=== PATIENT | male | born 1955 | race Caucasian/White ===

== ENCOUNTER 2017-04-07 19:25 | Emergency (ER) | payer OTHER ==
[~2017-04-07] VITALS: Ht 182.9 cm; Wt 125.0 kg
[~2017-04-07 19:25] MED LIST: ALAVERT10 M1 PO; ASPIRIN 32325 MG/TAB PO; BENADRYL25 M2 PO; BYSTOLIC10 MG PO; BYSTOLIC5 MG PO; CARDI-OMEGA1000 MG PO; CARDIZEM CD 18180 MG PO; CENTRUM SILVER1 CTB PO; CLARITIN 1010 MG/TAB PO; CLARITIN10 MG PO; CRESTOR40 MG PO; CRESTOR5 MG PO; CYMBALTA 30MG30 MG PO; EXCEDRIN BACK &1 TAB PO; EXCEDRIN PO; FISH OIL 1000MG1 CAP PO; FISH OIL1000 MG PO; FLEXERIL 1010 MG/TAB PO; FLOMAX 0.40.4 MG/CAP PO; FLOVENT 110MCG7.9 GM IH; IMDUR 30MG30 MG/TAB PO; IMDUR30 MG PO; LIPITOR 80MG80 MG PO; LIPITOR80 MG PO; LISINOPRIL/HCTZ1 TA1 PO; LISINOPRIL10 MG PO; LYRICA 25MG CAP25 MG PO; LYRICA 75MG CAP75 MG PO; LYRICA75 MG PO; METOPROLOL TART25 MG PO; MICROZIDE12.5 MG PO; MOBIC 7.5MG7.5 MG PO; MSM1000 MG PO; MUCINEX D1 TER PO; NAPROSYN 2250 MG/TAB PO; NAPROSYN500 MG PO; NITROSTAT0.4 MG/TAB SL; NORVASC 5MG5 MG/TAB PO; OMEGA 31000 MG PO; PERCOCET 325 MG1 TA2 PO; PLAVIX 75MG TAB75 MG PO; PREDNISONE20 MG PO; PRINIVIL10 MG PO; PRINIVIL20 MG PO; PROVENTIL0.09 MG/A1 IH; RT ADVAIR 228 DISKUS IH; TOPAMAX 25MG25 M1 PO; TRICOR48 MG PO; TYLENOL ARTHRI650 M1 PO; VENTOLIN0.09 MG IH; VITAMIN B122500 MCG SL; VITAMIN C BUFF500 MG PO; VYTORIN 10 MG-41 TAB PO; XOPENEX HF0.045 MG/A IH; ZANAFLEX 4MG TAB4 MG PO; ZANAFLEX CAPSULE4 MG PO; ZIAC 5/6.25MG T1 TAB PO; ZYRTEC 10MG10 MG PO; [UNRECOGNIZED DRUG - OTHER]
[2017-04-07 19:33] VITALS: BP 149/71; PULSE 62; TEMP 98.4
[2017-04-07] MEDS ORDERED: NORCO 325 MG-51 TAB PO (21:36)
== END 2017-04-07 21:46 | disposition home or self-care (01) ==
LOC: COL.ER 19:25
DX: S60.022A Contusion of left index finger without damage to nail, initial encounter (principal); I25.10 Atherosclerotic heart disease of native coronary artery without angina pectoris; I10 Essential (primary) hypertension; Z79.82 Long term (current) use of aspirin; Z88.1 Allergy status to other antibiotic agents; W22.8XXA Striking against or struck by other objects, initial encounter; Y92.009 Unspecified place in unspecified non-institutional (private) residence as the place of occurrence of the external cause

== ENCOUNTER 2018-03-30 18:57 | Inpatient (IN) | payer BC, OTHER ==
[~2018-03-30] VITALS: Ht 182.9 cm; Wt 129.6 kg
[~2018-03-30 18:57] MED LIST changes: +NORCO 325 MG-51 TAB PO
[2018-03-30 19:54] LABS: BASO # 0.1 (0.0-0.2); BASO % 0.5 % (0.0-2.0); EOS # 0.1 (0.0-0.7); EOS % 0.5 % (0-4.0); GRAN # 8.2 (1.4-6.5); GRAN % 74.7 % (42.2-75.2); HEMATOCRIT 45.9 % (42.0-52.0); HEMOGLOBIN 16.2 g/dl (13.5-18.0); LYMPH # 1.7 (1.2-3.4); LYMPH % 15.4 % (20.0-51.0); MEAN CELL VOLUME 87 fl (80.0-100.0); MEAN CORPUSCULAR HEMOGLOBIN 31 pg (27.0-31.0); MEAN CORPUSCULAR HGB CONC 35 g/dl (33.0-37.0); MEAN PLATELET VOLUME 10.5 fl (7.4-10.4); MONO # 0.9 (0.1-0.6); MONO % 8.5 % (1.7-9.3); PLATELET COUNT 198 K/mm3 (130-400); RED BLOOD COUNT 5.29 M/mm3 (4.20-5.60); REDCELL DISTRIBUTION WIDTH-CV 13.5 % (11.5-14.5)
[2018-03-30 20:07] LABS: ALBUMIN 4.4 gm/dL (3.5-5.0); BILIRUBIN,TOTAL 1.3 mg/dL (0.0-1.0); C-REACTIVE PROTEIN 6.4 mg/dL (0.0-0.9); CALCIUM 9.5 mg/dL (8.4-10.2); CREATININE, serum 2.27 mg/dL (0.66-1.25); POTASSIUM 5.5 mmol/L (3.4-5.0); URIC ACID 9.3 mg/dL (3.5-8.5)
[2018-03-30 22:06] LABS: COLLECTION METHOD CATHETER; PH 5 (5-8); SQUAMOUS EPITHELIAL None Seen /hpf; URINE APPEARANCE Clear; URINE BACTERIA None Seen /hpf; URINE BILIRUBIN Negative (NEGATIVE); URINE BLOOD Negative (NEGATIVE); URINE COLOR Yellow; URINE GLUCOSE Negative (NEGATIVE); URINE KETONE Negative (NEGATIVE); URINE LEUKOCYTE ESTERASE Negative (NEGATIVE); URINE NITRATE Negative (NEGATIVE); URINE PROTEIN(semi-quant) Negative (NEGATIVE); URINE RBC 0-2 /hpf; URINE UROBILINOGEN Negative (NEGATIVE)
--- NOTE | 2018-03-30 23:43 | NUR ---
Patient arrived to room 353. Now resting in bed. Assessment completed, lung sounds clear, abdominal sounds audbile all quadrants, pain in left groin/hip area, given dilaudid in ER. Uses a cane to ambulate. Pulses +3. No edema.
[2018-03-30] MEDS ORDERED: MASON NATURAL2000 IU PO (23:47)
[2018-03-30] MEDS ORDERED: MAG-OX 400400 MG/TAB PO (23:49)
[2018-03-30] MEDS ORDERED: LYRICA 100MG C100 M1 PO (23:50)
[2018-03-30] MEDS ORDERED: FERRO-TIME325 MG PO (23:53)
[2018-03-30] MEDS ORDERED: ALPHA LIPOIC A200 M2 PO (23:56)
[2018-03-30] MEDS ORDERED: FLEXERIL 1010 MG/TAB PO (23:57)
[2018-03-30] MEDS ORDERED: BENADRYL25 M2 PO (23:58)
[2018-03-31] VITALS (11 sets, daily range): BP systolic 86–138; BP diastolic 47–74; PULSE 53–88; TEMP 97.4–99.5
[2018-03-31] MEDS ORDERED: EPA FISH OIL1 SGL PO
[2018-03-31] MEDS ORDERED: BACTRIM DS 8001 TAB PO (00:06)
[2018-03-31 02:22] LABS: CREATININE, serum 2.74 mg/dL (0.66-1.25); POTASSIUM 5.3 mmol/L (3.4-5.0)
[2018-03-31 02:40] LABS: MAGNESIUM 2.3 mg/dL (1.6-2.3); PHOSPHOROUS 4.1 mg/dL (2.5-4.5)
[2018-03-31 02:41] LABS: FRACTIONAL EXCRETION OF NA+ 0.8 %
--- NOTE | 2018-03-31 03:00 | NUR ---
Low BP per [facility], this nurse took a manual blood pressure with 98/74. Plan to recheck in 45 minutes to see if blood pressure is still low.
--- NOTE | 2018-03-31 04:19 | NUR ---
Patient has only had 10 mls output since arriving to floor. Bladder scanned, [address]ls[address] in [address]. Blood pressure dropping 90/54. CARLY Carlos notified, ordered 1 L bolus.
--- NOTE | 2018-03-31 05:19 | NUR ---
Liter bolus done infusing, blood pressure better, SBP 100's. Still no urine output. Bladder scanned again, 30 mls. Lungs sound clear. CARLY Carlos notified. Maintenance fluids continuted at 150 mls/hr, will continue to watch I/O closely and patient has a urology consult already ordered.
--- NOTE | 2018-03-31 07:00 | NUR ---
Report received from KRISTINA Jones. Pt in bed resting, c/o discomfort in joints, will get lyrica and continue to moniotor.
--- NOTE | 2018-03-31 08:10 | NUR ---
Dr. Martin returned call, he has no new orders at this time, feels this is more a nephrology case. Bladder scan revealed 30mls in bladder, duval draining scant amount of clear yellow urine. Bolus administering at this time to L a/c. Pt c/o generalized joint pain, lyrica given per reqeust. BPs low, hr 50's. APRIL Monterroso is aware and orders are being received. Pt appears anxious and uncomfortable, pain is 5/10 to to all extremities. Will continue to monitor.
[2018-03-31 08:34] LABS: HEMATOCRIT 40.2 % (42.0-52.0); MEAN CELL VOLUME 90 fl (80.0-100.0); MEAN CORPUSCULAR HEMOGLOBIN 30 pg (27.0-31.0); MEAN CORPUSCULAR HGB CONC 34 g/dl (33.0-37.0); MEAN PLATELET VOLUME 10.4 fl (7.4-10.4); PLATELET COUNT 171 K/mm3 (130-400); RED BLOOD COUNT 4.45 M/mm3 (4.20-5.60)
[2018-03-31 08:40] LABS: CALCIUM 7.7 mg/dL (8.4-10.2); CREATININE, serum 3.37 mg/dL (0.66-1.25); HEMOGLOBIN 13.5 g/dl (13.5-18.0)
[2018-03-31 08:55] LABS: BAND 9 % (0-10); LYMPHOCYTE 17 % (20.0-51.0); NEUTROPHILS 60 % (42.0-75.2)
[2018-03-31 08:56] LABS: PLATELET ESTIMATE NORMAL (NORMAL)
--- NOTE | 2018-03-31 09:16 | NUR ---
Hospitalist rounding at this time. Some urine now in tubing in catheter. BP is up slightly to 90's/60's.
--- NOTE | 2018-03-31 10:50 | NUR ---
Pushed IV medications to help lower potassium with charge nurse KRISTINA Arita. Pt tolerated well, will continue to monitor.
[2018-03-31 12:42] LABS: URINE PROTEIN:CREAT RATIO 0.93 (0.00-0.14)
--- NOTE | 2018-03-31 16:00 | NUR ---
SW and SW student met with patient to discuss discharge planning. Patient lives alone since his around a year ago. Patients PCP is Dr Gail Morales and he obtains his medications at [facility]. Patient reports his next of kin/contact is his sister Barb who lives down by [place] (#[phone] [id number]#[phone]). Patient doesnt use DME or HH services. SW will continue to follow for discharge needs.
--- NOTE | 2018-03-31 18:28 | NUR ---
Pt has done well over shift. He has had good urine output as of mid morning, urine is yellow and clear draining to duval catheter via DD in bag at side of bed. Has had 2 bms since kayexelate, bed frausto used and pericare provided. Pt continues to c/o pain to L groin, knees, and shoulders, PRN pain meds provided as needed for pain throghout the day and notified physician when c/o pain were not being met. Urology and hospitalist vistied pt this afternoon. Pt resting in bed, ordered supper, call light in reach. Will give bedside shift report to nightshift nurse who will resume care.
--- NOTE | 2018-03-31 19:45 | NUR ---
Patient resting in bed. C/O knee pain, given tylenol and norco. Used bedpan, no results. Catheter in place, patient having output. IV fluids infusing at 150 mls/hr, IV becoming redenned, will switch IV site tonight.
[2018-03-31 20:44] LABS: CALCIUM 8.2 mg/dL (8.4-10.2); CREATININE, serum 2.27 mg/dL (0.66-1.25); POTASSIUM 5.3 mmol/L (3.4-5.0)
[2018-04-01 01:23] VITALS: BP 108/75; PULSE 81; TEMP 99.1
[2018-04-01 03:23] LABS: COMPLEMENT-C3 159 mg/dL (79-152); COMPLEMENT-C4 30 mg/dL (18-55)
--- NOTE | 2018-04-01 03:30 | NUR ---
Patient c/o arm pain in lower arm, has carpal tunnel in left hand. Repositioned arm, given ice, given heat. Patient now resting in bed.
--- NOTE | 2018-04-01 05:20 | NUR ---
Patient did not sleep much last night. C/O pain, varying from knees, to back, to arms. Given NORCO and tylenol. Heat applied, ice applied. Repositioning. Patient will receive his Lyrica this morning, and will be given another NORCO when it is available to him again.
[2018-04-01 05:38] VITALS: BP 128/54; PULSE 85; TEMP 98.9
--- NOTE | 2018-04-01 05:46 | NUR ---
Patient's pain resolved, now resting in bed.
[2018-04-01 06:07] LABS: BASO % 0.3 % (0.0-2.0); EOS # 0.2 (0.0-0.7); EOS % 1.9 % (0-4.0); GRAN # 6.8 (1.4-6.5); HEMATOCRIT 40.7 % (42.0-52.0); HEMOGLOBIN 13.6 g/dl (13.5-18.0); LYMPH # 1.3 (1.2-3.4); LYMPH % 13.5 % (20.0-51.0); MEAN CELL VOLUME 90 fl (80.0-100.0); MEAN CORPUSCULAR HEMOGLOBIN 30 pg (27.0-31.0); MEAN CORPUSCULAR HGB CONC 33 g/dl (33.0-37.0); MEAN PLATELET VOLUME 10.4 fl (7.4-10.4); MONO # 1.5 (0.1-0.6); PLATELET COUNT 158 K/mm3 (130-400); RED BLOOD COUNT 4.53 M/mm3 (4.20-5.60); REDCELL DISTRIBUTION WIDTH-CV 13.8 % (11.5-14.5)
[2018-04-01 06:22] LABS: CALCIUM 8.1 mg/dL (8.4-10.2); CREATININE, serum 1.68 mg/dL (0.66-1.25); MAGNESIUM 2.3 mg/dL (1.6-2.3); POTASSIUM 4.8 mmol/L (3.4-5.0)
[2018-04-01 07:39] VITALS: BP 126/67; PULSE 84; TEMP 98.5
--- NOTE | 2018-04-01 10:00 | NUR ---
Pt alert and oriented and catheter patent. Pt's pain managed with PRN meds. Pt has call light in reach. Pt bedbound d/t pain in left groin and knees and abdomen. Pt very particular on bed roll and requires 2 assist. Pt am assessment completed.
[2018-04-01 11:31] VITALS: BP 108/56; PULSE 83; TEMP 98.6
[2018-04-01 16:09] VITALS: BP 132/81; PULSE 88; TEMP 98.4
--- NOTE | 2018-04-01 18:00 | NUR ---
Pt remains alert and oriented. Pt had 500cc output noted and has been drinking water through the day. IV fluids dc'd. Pt rates pain 4/10. Pt has call light in reach.
[2018-04-01 19:07] VITALS: BP 141/70; PULSE 96; TEMP 99.1
--- NOTE | 2018-04-01 19:52 | NUR ---
Pt report to Cipriano ACEVEDO. Pt requesting pain med at shift change and c/o tip of penis pain. Penis cleansed and output shown to pt. Cipriano ACEVEDO will get PRN med for pain mngt. Pt has call light in reach.
--- NOTE | 2018-04-02 03:13 | NUR ---
On initial visit with Pt he had a C/O being in a lot of pain due to the duval insertion, there was bloody residue on the tubing and catheter care was provided by the off going nurse. This nurse attended to Pt first and administered PRN pain medication and muscle relaxant, when reassessing Pt after administration it was noted that Pt still had a high level of pain and was becoming aggitated and wanted his Duval removed, explained to Pt the reasons for the Duval being needed and that I would contact the provider for further guidance for pain relief. Contacted the provider and received an order for B&O suppositories one now and then PRN, this nurse went to discuss with Pt the providers resolution. This nurse found Pt sitting at the side of the bed with the duval removed and on the floor insisting that we release him to leave, explained to Pt that I would talk to the Wire Repairer and that it was his right to leave at any time but that I would need to complete AMA paperwork for him to leave. Contacted Wire Repairer who spoke with Pt, Pt was insistent on leaving. Pt was told that before we could let him leave he would have to have somebody here to drive him home, when his ride home arrived this nurse helped him to get dressed and had Pt read and complete the AMA paperwork, with the assistance of the aides and other nurses we tried to get him to stand and he was unable to support his weight, he was then told that if he was unable to stand and walk that it was in his best interest to stay, Pt at this point aggreed and got back into bed, at this point telemetry was placed back on the Pt, I.V. access reestablished, and overdue medications administered. Duval catheterization was not reestablished at this time pending review by provider whom will be contacted in the morning.
[2018-04-02 04:45] VITALS: BP 131/70; PULSE 116; TEMP 97.9
[2018-04-02 07:49] VITALS: BP 138/63; PULSE 108; TEMP 98.4
[2018-04-02 08:46] LABS: BASO % 0.3 % (0.0-2.0); EOS % 0.1 % (0-4.0); GRAN # 8.5 (1.4-6.5); GRAN % 78.5 % (42.2-75.2); HEMATOCRIT 40.8 % (42.0-52.0); HEMOGLOBIN 14.1 g/dl (13.5-18.0); LYMPH # 0.9 (1.2-3.4); MEAN CELL VOLUME 88 fl (80.0-100.0); MEAN CORPUSCULAR HEMOGLOBIN 31 pg (27.0-31.0); MEAN CORPUSCULAR HGB CONC 35 g/dl (33.0-37.0); MEAN PLATELET VOLUME 10.3 fl (7.4-10.4); MONO # 1.4 (0.1-0.6); MONO % 12.7 % (1.7-9.3); PLATELET COUNT 218 K/mm3 (130-400); RED BLOOD COUNT 4.63 M/mm3 (4.20-5.60); REDCELL DISTRIBUTION WIDTH-CV 13.8 % (11.5-14.5)
[2018-04-02 08:51] LABS: CREATININE, serum 1.33 mg/dL (0.66-1.25); MAGNESIUM 1.9 mg/dL (1.6-2.3); POTASSIUM 4.6 mmol/L (3.4-5.0)
--- NOTE | 2018-04-02 10:39 | NUR ---
BRIEN and brien student attended clinical rounding. Patient is still unable to walk due to pain in his legs. has ordered more tests today. BRIEN will continue to follow PT recommedations.
[2018-04-02 15:48] VITALS: BP 118/66; PULSE 102; TEMP 97.9
--- NOTE | 2018-04-02 17:00 | NUR ---
Summary note: Report received from KRISTINA Perez at 1300. Pt resting in bed; complained of pain and medications given as documented. Killian irrigated and multiple clots removed. Urinary output of 500 mL immediately after. Pt denies further needs.
--- NOTE | 2018-04-02 17:59 | NUR ---
Report given to KRISTINA Maier on surgical. Pt transferred with all his belongings.
--- NOTE | 2018-04-02 18:20 | NUR ---
PATIENT ARRIVED TO ROOM 343 VIA BED FROM MEDICAL. PATIENT SETTELED INTO ROOM. PATIENT DENIES ANY NEEDS AT THIS TIME.
--- NOTE | 2018-04-02 18:53 | NUR ---
REPORT GIVEN TO LASHELL TOMAS.
[2018-04-02 19:55] VITALS: BP 133/75; PULSE 101; TEMP 98
--- NOTE | 2018-04-02 20:00 | NUR ---
Patient resting in bed at this time. Patient rouses easily and is alert and oriented while awake, answers questions appropriately. Killian catheter in place draining dark red urine, small clots evident. Patient denies pain at this time, call light within reach.
[2018-04-02 23:39] VITALS: BP 112/81; PULSE 103; TEMP 98.6
--- NOTE | 2018-04-03 01:09 | NUR ---
Patient called to report that he was feeling pressure and discomfort in his bladder. After draining the tubing patient stated that he still felt pressure. Irrigated Duval with 60ml of sterile water and returned multiple small to medium clots. Urine was free flowing once drainage bag was replaced to duval, urine is still dark red in appearance and has multiple small clots in tubing and bag. Patient reported feeling relief after irrigation. Denies further needs at this time, call light within reach.
[2018-04-03 03:58] VITALS: BP 155/63; PULSE 108; TEMP 98.2
[2018-04-03 06:50] LABS: BASO % 0.1 % (0.0-2.0); GRAN # 6.1 (1.4-6.5); GRAN % 86.3 % (42.2-75.2); HEMATOCRIT 43.2 % (42.0-52.0); HEMOGLOBIN 14.9 g/dl (13.5-18.0); LYMPH # 0.5 (1.2-3.4); LYMPH % 7.5 % (20.0-51.0); MEAN CELL VOLUME 87 fl (80.0-100.0); MEAN CORPUSCULAR HEMOGLOBIN 30 pg (27.0-31.0); MEAN CORPUSCULAR HGB CONC 35 g/dl (33.0-37.0); MEAN PLATELET VOLUME 10.3 fl (7.4-10.4); MONO # 0.4 (0.1-0.6); MONO % 5.7 % (1.7-9.3); PLATELET COUNT 249 K/mm3 (130-400); RED BLOOD COUNT 4.95 M/mm3 (4.20-5.60); REDCELL DISTRIBUTION WIDTH-CV 13.8 % (11.5-14.5)
[2018-04-03 07:02] LABS: CALCIUM 9.6 mg/dL (8.4-10.2); CREATININE, serum 1.11 mg/dL (0.66-1.25); POTASSIUM 5.4 mmol/L (3.4-5.0)
[2018-04-03 07:48] VITALS: BP 158/66; PULSE 118; TEMP 97.9
--- NOTE | 2018-04-03 10:00 | NUR ---
Patient alert and oriented, answers questions appropriately. See assessment. Killian catheter patent and draining dark red urine, no clots noted, catheter irrigated. Minimal bloody drainage noted around catheter. No c/o at this time.
--- NOTE | 2018-04-03 10:44 | NUR ---
SW met with patient. Patient reports that he is ready to leave. Patient is reported as having limited functioning in lower extrementies. SW provided education on safety at home. SW educated recommendation for SNF. Patient reports that he has no objections to SNF. Patient choice form signed for [facility] and [facility]. Contacted [facility], they are full. [facility] awaiting screening. Faxed referrals. Patient reports that he is agreeable to SNF. Patient reports that he does not have a DPOA and declined setting one up at this time. SW will continue to follow care to assist in DC.
[2018-04-03 11:52] VITALS: BP 112/72; PULSE 105; TEMP 98.2
[2018-04-03 15:14] VITALS: BP 133/74; PULSE 111; TEMP 98.1
[2018-04-03 19:42] VITALS: BP 127/62; PULSE 95; TEMP 98
--- NOTE | 2018-04-03 20:00 | NUR ---
Patient resting in bed watching television at this time. Patient is alert and oriented, answers questions appropriately. Killian in place and is draining bloody urine. Urine has lightened but blood is still apparent in urine, small blood clots visible in tubing and bag. Patient denies pain or needs at this time, call light within reach.
[2018-04-04 03:12] VITALS: BP 125/63; PULSE 72; TEMP 98.2
--- NOTE | 2018-04-04 05:17 | NUR ---
Patient has rested well overnight. Patient up with x1 assist to bedside commode. Patient was continent of bowel and was a minimal assist back to bed. Killian still in place, urine intermittently bloody and aysha with small clots. Patient denies further needs at this time, call light within reach.
[2018-04-04 06:42] LABS: BASO % 0.5 % (0.0-2.0); EOS # 0.1 (0.0-0.7); EOS % 0.7 % (0-4.0); GRAN # 5.5 (1.4-6.5); GRAN % 66.3 % (42.2-75.2); HEMATOCRIT 38.8 % (42.0-52.0); HEMOGLOBIN 13.5 g/dl (13.5-18.0); LYMPH # 1.4 (1.2-3.4); LYMPH % 17.3 % (20.0-51.0); MEAN CELL VOLUME 87 fl (80.0-100.0); MEAN CORPUSCULAR HEMOGLOBIN 30 pg (27.0-31.0); MEAN CORPUSCULAR HGB CONC 35 g/dl (33.0-37.0); MEAN PLATELET VOLUME 10.6 fl (7.4-10.4); MONO # 1.2 (0.1-0.6); MONO % 14.8 % (1.7-9.3); PLATELET COUNT 244 K/mm3 (130-400); RED BLOOD COUNT 4.44 M/mm3 (4.20-5.60)
[2018-04-04 06:51] LABS: CALCIUM 8.8 mg/dL (8.4-10.2); CREATININE, serum 1.21 mg/dL (0.66-1.25); POTASSIUM 4.2 mmol/L (3.4-5.0)
--- NOTE | 2018-04-04 09:00 | NUR ---
Patient has stated several times this am that his catheter is not draining and he is having pain. Irrigated the catheter, did not get any clots but did get the catheter to flow. He had some sediment and dark aysha urine returned. No other changes at this time. Call light within reach.
[2018-04-04 09:02] VITALS: BP 123/65; PULSE 67; TEMP 97.8
[2018-04-04 12:43] VITALS: BP 117/62; PULSE 60; TEMP 97.7
--- NOTE | 2018-04-04 13:30 | NUR ---
Medicated with prn med for c/o bladder pain. Catheter draining dark aysha urine. Fluids encouraged.
[2018-04-04 16:00] VITALS: BP 129/56; BP 130/55; PULSE 66; PULSE 91; TEMP 97.9; TEMP 98
--- NOTE | 2018-04-04 18:00 | NUR ---
Sitting at side of bed without complaint.
--- NOTE | 2018-04-04 19:15 | NUR ---
Report received from Anika ACEVEDO. Pt helped back into bed from side of bed. Pt c/o pain 03/18 at rest, but requesting pain medication for bladder spasm. Catheter to dependent drainage-dark aysha urine noted. Lungs clear. Respirations unlabored. BS positive. Will continue to monitor.
[2018-04-04 19:45] VITALS: BP 128/66; PULSE 63; TEMP 98
[2018-04-04 23:35] VITALS: BP 130/72; PULSE 62; TEMP 97.7
--- NOTE | 2018-04-05 01:20 | NUR ---
Pt called reporting his catheter was "not working". Catether irrigated with 10 cc Sterile water with immediate return of dark aysha urine. Pt reports relief. Will continue to monitor.
[2018-04-05 03:50] VITALS: BP 132/63; PULSE 63; TEMP 97.8
--- NOTE | 2018-04-05 03:59 | NUR ---
Pt called at 0330 stating that his catheter wasn't "working" again. Catheter irrigated with 20 mL Sterile water. Unable to draw anything back, but catheter does drain when syring is removed. 100 mL of output is noted. Pt stated that he still felt pressure, so Erasmo ACEVEDO irrigated catheter multiple times with no return. 10 mL water removed from catheter balloon and catheter removed. New catheter inserted by Erasmo ACEVEDO via sterile technique. Small amount of blood tinged urine drained into the catheter tube upon insertion. Erasmo ACEVEDO attempted to irrigate catheter again with no immediate return, but catheter is draining. Bladder scan results showed only 20 mL of urine in bladder. Will continue to monitor urine drainage.
[2018-04-05 06:46] LABS: BASO # 0.1 (0.0-0.2); BASO % 0.7 % (0.0-2.0); EOS # 0.3 (0.0-0.7); EOS % 4.5 % (0-4.0); GRAN # 3.8 (1.4-6.5); GRAN % 53.6 % (42.2-75.2); HEMATOCRIT 37.7 % (42.0-52.0); HEMOGLOBIN 12.8 g/dl (13.5-18.0); LYMPH % 28.2 % (20.0-51.0); MEAN CELL VOLUME 89 fl (80.0-100.0); MEAN CORPUSCULAR HEMOGLOBIN 30 pg (27.0-31.0); MEAN CORPUSCULAR HGB CONC 34 g/dl (33.0-37.0); MEAN PLATELET VOLUME 9.7 fl (7.4-10.4); MONO # 0.9 (0.1-0.6); MONO % 12.6 % (1.7-9.3); PLATELET COUNT 240 K/mm3 (130-400); RED BLOOD COUNT 4.25 M/mm3 (4.20-5.60)
[2018-04-05 06:59] LABS: CALCIUM 8.7 mg/dL (8.4-10.2); CREATININE, serum 1.13 mg/dL (0.66-1.25); POTASSIUM 3.6 mmol/L (3.4-5.0)
--- NOTE | 2018-04-05 07:03 | NUR ---
Report given to Estela ACEVEDO. Pt resting. UO has been adequate since catheter replacement. Pt reports having some relief.
[2018-04-05 07:42] VITALS: BP 124/74; PULSE 73; TEMP 98.2
--- NOTE | 2018-04-05 08:36 | NUR ---
Patient alert and oriented, answers questions appropriately. See assessment. Killian catheter patent and draining dark aysha urine, few clots noted. Full strenght noted to BLE, pulses palpable. No c/o at this time.
--- NOTE | 2018-04-05 12:09 | NUR ---
Raul from [employer] met with patient and looked at options for patient for financial assistance and insurance.
[2018-04-05 12:58] VITALS: BP 124/68; PULSE 57; TEMP 98.1
[2018-04-05 15:51] VITALS: BP 121/70; PULSE 61; TEMP 98
--- NOTE | 2018-04-05 19:30 | NUR ---
Shift assessment complete. Pt resting in bed, awake, a&o, cooperative c cares. Pt reports increased pain since moving back into bed; pt requests ocycodone c HS meds. Denies any other c/o. INT patent. Pt denies further needs at this time. Call light in reach, will monitor.
[2018-04-05 20:55] VITALS: BP 144/70; PULSE 58; TEMP 98.2
[2018-04-06] VITALS (8 sets, daily range): BP systolic 120–135; BP diastolic 55–75; PULSE 52–85; TEMP 97.7–98.7
[2018-04-06 06:02] LABS: CALCIUM 8.8 mg/dL (8.4-10.2); CREATININE, serum 1.09 mg/dL (0.66-1.25); POTASSIUM 3.8 mmol/L (3.4-5.0)
[2018-04-06 06:52] LABS: BASO # 0.1 (0.0-0.2); BASO % 0.8 % (0.0-2.0); EOS # 0.3 (0.0-0.7); EOS % 4.4 % (0-4.0); GRAN # 4.3 (1.4-6.5); GRAN % 59.5 % (42.2-75.2); HEMATOCRIT 38.9 % (42.0-52.0); HEMOGLOBIN 13.2 g/dl (13.5-18.0); LYMPH # 1.6 (1.2-3.4); LYMPH % 22.1 % (20.0-51.0); MEAN CELL VOLUME 89 fl (80.0-100.0); MEAN CORPUSCULAR HEMOGLOBIN 30 pg (27.0-31.0); MEAN CORPUSCULAR HGB CONC 34 g/dl (33.0-37.0); MEAN PLATELET VOLUME 10.1 fl (7.4-10.4); MONO # 0.9 (0.1-0.6); MONO % 12.8 % (1.7-9.3); PLATELET COUNT 265 K/mm3 (130-400); RED BLOOD COUNT 4.36 M/mm3 (4.20-5.60); REDCELL DISTRIBUTION WIDTH-CV 13.9 % (11.5-14.5)
--- NOTE | 2018-04-06 09:30 | NUR ---
Patient alert and oriented, answers questions appropriately. See assessment. Killian catheter patent and draining dark aysha urine, no clots noted. Full strenght noted to BLE, no numbness or tingling. No other c/o at this time.
--- NOTE | 2018-04-06 11:15 | NUR ---
DONAVAN and SW student met with patient to discuss where he would like to obtain a walker from. He reports he has a friend he can ask to borrow one from. SW found the number of the friend and the [employer] and provided it. Will follow up after occupational therapy.
[2018-04-06] MEDS ORDERED: LEVSIN0.125 M1 SL (11:18)
--- NOTE | 2018-04-06 13:00 | NUR ---
Killian catheter care and bag changed reviewed with patient with return demonstration.
[2018-04-06] MEDS ORDERED: PREDNISONE20 MG PO (14:22)
--- NOTE | 2018-04-07 01:23 | NUR ---
THE PT WAS BEDRESTING SHIFT REPORT FROM ANCELMO WAS RECIEVED. THE PT CALLED A SHORT TIME LATER TO REPORT THAT HE HAD SPASMS AND AN ELIMINATION AROUND HIS CATHETER. PT HAD 3" LONG BLOOD CLOT, STRINGY IN HIS DEPENDS, DEPENDS CHANGED. THE CLOT WAS SURROUNDED BY BLOOD TINGED URINE. 20CC IRRIGATION WITH NS, AND CLEARER RETURNS, GIVEN AZO, HAD A SMALLER 1" VERY THIN STRINGY CLOT, HAD PIPPA IN TO SPEAK WITH THE PT HE SEEMED NERVOUS AT HAVING THE CATHETER AND SPASMS, VERBALIZED THAT SOMEONE HAD TOLD HIM OF A 3 PORT CATHETER, ASKING IF HE SHOULD HAVE IT INSTEAD OF THE 2 PORT ONE THAT HE CURRENTLY HAS. SHE EXPLAINED THE DIFFERENCE AND THAT THE ONE HE HAS IS MEETING HIS CURRENT NEEDS. CALL TO HOSPITALIST REGUARDING HIS MAREPHIN ORDER. HOLD AND CLARIFY WITH UROLOGY IN THE AM. PT GOT A INGRID ABOUT 2315 WITH GOOD EFFECT. APPEARS TO NAP.
--- NOTE | 2018-04-07 02:03 | NUR ---
TRUNG BROCK REPORTED THAT HTE PT HAD ANOTHER SMALL PINK TINGED LEAK AROUND HIS CATHETER. SHE ASSISTED HIM WITH DOFFING THE OLD DEPENDS AND DONNED ANOTHER. THIS NURSE DISCUSSED THIS WITH PIPPA LEVINE RN, NORMAL FOR BLADDER SPASMS.
--- NOTE | 2018-04-07 02:42 | NUR ---
BEDRESTING WITH EYES CLOSED, RESP EVEN
--- NOTE | 2018-04-07 06:43 | NUR ---
C\O PAIN, GAVE INGRID JUST NOW, UP TO THE BR FOR A MED TO LARGE SF BR BM, MEATUS LEAKED SOME, HYGIENE ASSISTED. PT IS HOPEFUL TO HAVE HIS CORBIN OUT SOON.
--- NOTE | 2018-04-07 07:30 | NUR ---
PATIENT CALLED OUT STATING THAT HE'S LEAKING AROUND HIS CATHETER AGAIN. MODERATE AMOUNT OF BLOOD-TINGED URINE WITHOUT CLOTS PRESENT IN BRIEF. MODE CARE AND CATHETER CARE PROVIDED. PATIENT GIVEN PRN DOSE OF LEVSIN. CORBIN CATHETER TO DEPENDENT DRAINAGE WITH SMALL AMOUNTS OF CLEAR ORANGE COLORED URINE PRESENT IN CORBIN BAG.
--- NOTE | 2018-04-07 08:00 | NUR ---
PATIENT IS DROWSY AND RESTING IN BED. PATIENT AROUSES EASILY TO NAME. PATIENT IS A&O. VSS. BOWEL SOUNDS ACTIVE ALL FOUR QUADRANTS. PATIENT TOLERATING FOOD & LIQUIDS WITHOUT ANY COMPLAINTS OF N/V. POSITIVE PEDAL PULSES EQUAL BILATERALLY. NON-PITTING EDEMA TO BLE NOTED. ECCHYMOSIS TO ABDOMEN RLQ NOTED. CORBIN CATHETER TO DEPENDENT DRAINAGE WITH SMALL AMOUNTS OF CLEAR ORANGE COLORED URINE PRESENT IN CORBIN BAG. PATIENT GIVEN PRN DOSE OF LEVSIN FOR COMPLAINTS OF BLADDER SPASMS. CALL LIGHT WITHIN REACH. BREAKFAST TRAY ORDERED. NO OTHER NEEDS AT THIS TIME.
[2018-04-07 08:14] LABS: BASO % 0.5 % (0.0-2.0); EOS # 0.4 (0.0-0.7); EOS % 4.4 % (0-4.0); GRAN # 5.4 (1.4-6.5); HEMATOCRIT 40.7 % (42.0-52.0); HEMOGLOBIN 13.7 g/dl (13.5-18.0); LYMPH # 1.5 (1.2-3.4); LYMPH % 17.9 % (20.0-51.0); MEAN CELL VOLUME 90 fl (80.0-100.0); MEAN CORPUSCULAR HEMOGLOBIN 30 pg (27.0-31.0); MEAN CORPUSCULAR HGB CONC 34 g/dl (33.0-37.0); MEAN PLATELET VOLUME 9.9 fl (7.4-10.4); MONO # 0.9 (0.1-0.6); MONO % 10.6 % (1.7-9.3); PLATELET COUNT 313 K/mm3 (130-400); RED BLOOD COUNT 4.55 M/mm3 (4.20-5.60); REDCELL DISTRIBUTION WIDTH-CV 13.8 % (11.5-14.5)
[2018-04-07 08:45] LABS: CALCIUM 9.2 mg/dL (8.4-10.2); CREATININE, serum 1.13 mg/dL (0.66-1.25); POTASSIUM 4.3 mmol/L (3.4-5.0)
[2018-04-07 08:47] VITALS: BP 107/75; PULSE 55; TEMP 98
--- NOTE | 2018-04-07 10:00 | NUR ---
PATIENT HAD A BLADDER SPASM WHILE WALKING WITH PHYSICAL THERAPY. LARGE INCONTINENT VOID AROUND CORBIN CATHETER. URINE BLOOD-TINGED, NO CLOTS PRESENT.
--- NOTE | 2018-04-07 10:11 | NUR ---
SW and SW student met with patient during clinical rounding. Patient did not discharge last night but will be dc home today with support from friends and outpatient therapy.
[2018-04-07] MEDS ORDERED: FLEXERIL5 MG PO (11:39)
[2018-04-07] MEDS ORDERED: ROXICODONE 55 MG/TAB PO (11:48)
[2018-04-07 12:40] VITALS: BP 105/90; PULSE 54; TEMP 97.3
--- NOTE | 2018-04-07 15:30 | NUR ---
DISCHARGE INSTRUCTIONS REVIEWED WITH PATIENT. LEG BAG TEACHING COMPLETE. ALL QUESTIONS ANSWERED. PATIENT PERSONAL BELONGINGS GATHERED. PATIENT TAKEN TO PERSONAL VEHICLE VIA WHEELCHAIR BY SURGICAL STAFF. PATIENT DISCHARGED.
[2018-04-07 15:48] VITALS: BP 122/65; PULSE 65; TEMP 99.1
== END 2018-04-07 15:30 | disposition home or self-care (01) | DRG 683 ==
LOC: COL.ER 18:57 → MEDICAL 22:41 → SURG 22:41 → MEDICAL 23:59 → SURG 04-02 17:59
PROVIDERS: Emergency Medicine; Internal Medicine; Nurse Practitioner Family; Physician Assistant; ADMIT Hospitalist
DX: N17.9 Acute kidney failure, unspecified (principal); N41.0 Acute prostatitis; N40.1 Benign prostatic hyperplasia with lower urinary tract symptoms; R33.8 Other retention of urine; E87.5 Hyperkalemia; E86.0 Dehydration; M25.562 Pain in left knee; M25.561 Pain in right knee; I25.10 Atherosclerotic heart disease of native coronary artery without angina pectoris; I10 Essential (primary) hypertension; E78.5 Hyperlipidemia, unspecified; J45.909 Unspecified asthma, uncomplicated; N18.3 Chronic kidney disease, stage 3 (moderate); R31.9 Hematuria, unspecified
CPT/HCPCS: 99222-AI; 99231-AI; 99232-AI; 99233-AI; 99239; G0378; J0610; J0696; J1100; J1170; J1644; J1815; J1940; J2405; J3010; J7030; J7512

== ENCOUNTER 2018-05-14 05:03 | Day surgery (SDC) | payer BC ==
[~2018-05-14] VITALS: Ht 182.9 cm; Wt 133.2 kg
[2018-05-14] VITALS (12 sets, daily range): BP systolic 97–132; BP diastolic 51–76; PULSE 62–89; TEMP 97.6–98.4
[~2018-05-14 05:03] MED LIST changes: +ALPHA LIPOIC A200 M2 PO; +BACTRIM DS 8001 TAB PO; +EPA FISH OIL1 SGL PO; +FERRO-TIME325 MG PO; +FLEXERIL5 MG PO; +LEVSIN0.125 M1 SL; +LYRICA 100MG C100 M1 PO; +MAG-OX 400400 MG/TAB PO; +MASON NATURAL2000 IU PO; +ROXICODONE 55 MG/TAB PO
--- NOTE | 2018-05-14 06:39 | NUR ---
TO RM AT 0529- CALL LIGHT IN REACH NO ONE WITH PATIENT
--- NOTE | 2018-05-14 12:15 | NUR ---
MET PT UPON ARRIVAL TO SURGICAL FLOOR. SETUP HOME CPAP UNIT AT BEDSIDE. PT AWAKE AN ANSWERING QUESTIONS WITH NURSING STAFF. HOME UNIT LEFT AT BEDSIDE, STERILE WATER AND HUMIDIFICATION ATTACHED. NO DISTRESS NOTED. CURRENTLY ON 4L NC.
--- NOTE | 2018-05-14 12:15 | NUR ---
Patient alert and oriented, answers questions appropriately. See assessment. Killian catheter patent and draining clear yellow urine. CBI infusing at slow rate. No c/o pain or discomfort at this time.
--- NOTE | 2018-05-14 18:12 | NUR ---
Discharge instructions given both verbal and handwritten. Discussed follow up, home medications, s/s to notify provider of. 20g IV-right hand DCd. Cath intact. No s/s of infection noted. Escorted off [place]stein via wheelchair by surgical staff.
--- NOTE | 2018-05-14 22:37 | NUR ---
Completed assessment and medication administration; PT tolerated all cares well; PT denied acute pain or discomfort at urinary/groin sites; PT reports minor headache and requested available PRN Tylenol 650mg; PT A&Ox3, BS active x4, duval in place draining red clear urine; IV 1/2 NS 20mEq initated as ordered to right hand IV at 100ml/hr; No further complaints or concerns at time of exit; PT in comfortable position in bed with call light in reach; Will continue to monitor. CDA
[2018-05-15] VITALS (7 sets, daily range): BP systolic 94–124; BP diastolic 48–65; PULSE 55–66; TEMP 97.3–97.8
--- NOTE | 2018-05-15 03:22 | NUR ---
PT resting well in bed with duval draining unobstructed intermittent red tinged clear urine; irrigation clamped; 1/2 NS 20mEq running at 100ml/hr to right hand; No further visible concern assessed at this time; PT in comfortable position in bed with call light in reach; Will continue to monitor. CDA
--- NOTE | 2018-05-15 07:04 | NUR ---
Report given to LASHELL Adkins. CDA
--- NOTE | 2018-05-15 08:57 | NUR ---
Patient resting in bed at this time. Patient rouses easily, and is alert and oriented, answers questions appropriately when awake. Killian remains in place, urine is dark pink at this time; CBI is clamped. IVF continue, will INT per order after breakfast if patient continues to have no nausea. Patient continues to deny pain or further needs at this time, call light within reach.
--- NOTE | 2018-05-15 10:24 | NUR ---
Plan: Return home in [facility]. Assess: Patient reports living independently in [place]. Patient shares the his PCP is Dr. Morales. Patient reports that has a ride home of a friend. Patient indicated that we have all the information on file and did not give a verbal reports of his emr contacts or OA statues. Patient reports thta he has used home health in the past but does not want to use it. Patient reports RX obtained from [facility] locally, Denies the use of any DME. Patient reports that he has a walker but does not use it. Action: Patient reports that the door outside of his room is loud and interrupts his sleep. SW set expectations on not knowing how to mitigate that but will let his nurse know. No additional concerns at this time.
--- NOTE | 2018-05-15 11:00 | NUR ---
Patient was indisposed.
--- NOTE | 2018-05-15 19:14 | NUR ---
Patient has rested comfortably today. CBI has remained clamped, urine has alternated between clear yellow and bloody, no clots or bladder spasms. Patient has not needed PRN pain medication and has denied nausea. IV to INT per order. Patient denies needs at this time, call light within reach.
--- NOTE | 2018-05-15 23:02 | NUR ---
Completed assessment and medication administration; PT tolerated all cares well; PT denied further needs at this time; IV fluids D/C to RH; CBI clamped; Will start prime and pull with 6 cup collection this evening; duval inplace with pink clear urine draining to dependent collection bag; no verbal report of pain, discomfort, or bladder spasms; PT A&Ox3, BS active x4, LCTAB in upper lobes and diminished to bilateral lower lobes; No further needs at time of exit; Call light placed within reach; Will continue to monitor. CDA
--- NOTE | 2018-05-16 00:10 | NUR ---
PT initiated and educated on the prime and pull procedure; 26cc removed from double indwelling duval balloon at time of extraction; full catheter removed without complaints; 200cc bolus of fluid tolerated well; 6 collection cups placed within personal restroom for voiding collection; PT able to rest in bed at completion of procedure; Will continue to monitor. CDA
[2018-05-16 04:46] VITALS: BP 93/58; PULSE 54; TEMP 97.5
--- NOTE | 2018-05-16 06:02 | NUR ---
PT resting well in supine +15 HOB; PT denies acute concerns at time of rounds; PT tolerated all cares and ABX throughout shift; PICC lines flushing and drawing well; Labs pending; PT continues to AMB well for toileting with use of personal cane; No further needs or concerns at this time; Will continue to monitor. CDA
--- NOTE | 2018-05-16 06:14 | NUR ---
PT resting well in supine position +15 degree HOB; PT denies acute pain or discomfort; PT has completed 2/6 urinary cup collections post duval removal and CBI D/C; PT utilizing urinal during evening with success; No further needs or acute changes assessed during rounds; call light within reach; will continue to monitor. CDA
--- NOTE | 2018-05-16 06:57 | NUR ---
Report given to LASHELL Adkins. CDA
[2018-05-16 08:19] VITALS: BP 104/57; PULSE 56; TEMP 97.7
--- NOTE | 2018-05-16 09:00 | NUR ---
Patient resting in bed watching television at this time. Patient is alert and oriented, answers questions appropriately. Killian was removed this morning and six bottle in progress, urine is still blod tinged but clear. Patient denies pain or nausea at this time, call light within reach.
[2018-05-16 13:19] VITALS: BP 120/64; PULSE 54; TEMP 97.5
--- NOTE | 2018-05-16 15:51 | NUR ---
Discharge teaching completed on discharge orders, follow up appointments and signs and symptoms to watch for. Patient verbalizes undertstanding and denies questions or concerns. INT removed, catheter removed intact, hemostasis achieved. Patient gathered belongings and was escorted out by surgical staff.
== END 2018-05-16 15:50 | disposition home or self-care (01) ==
LOC: SDCO 05:03 → SURG 11:10 → SDCO 05-16 15:50
DX: N40.1 Benign prostatic hyperplasia with lower urinary tract symptoms (principal); R33.8 Other retention of urine; N21.0 Calculus in bladder; J45.909 Unspecified asthma, uncomplicated; E78.5 Hyperlipidemia, unspecified; Z90.49 Acquired absence of other specified parts of digestive tract; Z95.5 Presence of coronary angioplasty implant and graft; Z79.82 Long term (current) use of aspirin; Z79.899 Other long term (current) drug therapy; Z79.02 Long term (current) use of antithrombotics/antiplatelets; I10 Essential (primary) hypertension; I25.10 Atherosclerotic heart disease of native coronary artery without angina pectoris; R20.2 Paresthesia of skin; Z68.39 Body mass index [BMI] 39.0-39.9, adult; E66.9 Obesity, unspecified; Z68.36 Body mass index [BMI] 36.0-36.9, adult; G89.29 Other chronic pain; Z80.3 Family history of malignant neoplasm of breast; Z83.3 Family history of diabetes mellitus
CPT/HCPCS: OP; J0690; J1100; J2405; J2550; J2704; J3010; J3480; J7120

== ENCOUNTER 2018-05-30 01:57 | Observation (INO) | payer BC ==
[~2018-05-30] VITALS: Ht 180.3 cm; Wt 131.8 kg
[2018-05-30 03:34] LABS: COLLECTION METHOD CLEAN CATCH
[2018-05-30 03:55] LABS: AMORPHOUS CRYSTAL Present /uL; PH 6 (5-8); SQUAMOUS EPITHELIAL None Seen /hpf; URINE APPEARANCE Clear; URINE BACTERIA None Seen /hpf; URINE BILIRUBIN Negative (NEGATIVE); URINE BLOOD 2+ (NEGATIVE); URINE CALCIUM OXALATE CRYSTAL Present /hpf; URINE COLOR Red; URINE GLUCOSE 2+ (NEGATIVE); URINE KETONE Negative (NEGATIVE); URINE LEUKOCYTE ESTERASE Negative (NEGATIVE); URINE NITRATE Negative (NEGATIVE); URINE PROTEIN(semi-quant) 2+ (NEGATIVE); URINE RBC >50 /hpf; URINE UROBILINOGEN Negative (NEGATIVE)
[2018-05-30 05:24] LABS: BASO # 0.1 (0.0-0.2); BASO % 0.8 % (0.0-2.0); EOS # 0.3 (0.0-0.7); EOS % 2.4 % (0-4.0); GRAN # 7.5 (1.4-6.5); GRAN % 68.8 % (42.2-75.2); HEMATOCRIT 40.7 % (42.0-52.0); HEMOGLOBIN 14.2 g/dl (13.5-18.0); LYMPH # 1.9 (1.2-3.4); LYMPH % 17.7 % (20.0-51.0); MEAN CELL VOLUME 87 fl (80.0-100.0); MEAN CORPUSCULAR HEMOGLOBIN 30 pg (27.0-31.0); MEAN CORPUSCULAR HGB CONC 35 g/dl (33.0-37.0); MEAN PLATELET VOLUME 10.4 fl (7.4-10.4); MONO # 1.1 (0.1-0.6); PLATELET COUNT 210 K/mm3 (130-400); RED BLOOD COUNT 4.67 M/mm3 (4.20-5.60); REDCELL DISTRIBUTION WIDTH-CV 13.4 % (11.5-14.5)
[2018-05-30 05:31] LABS: PROTHROMBIN TIME 11.8 SECONDS (9.7-12.8)
[2018-05-30 05:34] LABS: ALBUMIN 3.8 gm/dL (3.5-5.0); BILIRUBIN,TOTAL 0.8 mg/dL (0.0-1.0); CALCIUM 9.2 mg/dL (8.4-10.2); CREATININE, serum 1.27 mg/dL (0.66-1.25); PARTIAL THROMBOPLASTIN TIME 29.7 SECONDS (26.0-37.0); POTASSIUM 4.4 mmol/L (3.4-5.0)
[2018-05-30 05:40] VITALS: BP 112/58; PULSE 64; TEMP 98.3
--- NOTE | 2018-05-30 06:17 | NUR ---
PT ADMITTED WITH URINARY RETENTION FROM E.D. CBI INFUSES AT A MODERATE-RAPID RATE. SEE 5 PAGE ASSESSMENT.
[2018-05-30 07:36] VITALS: BP 106/60; PULSE 63; TEMP 98.3
--- NOTE | 2018-05-30 08:32 | NUR ---
Patient resting in bed. Dr. Martin rounded this am. Orders obtained. No plans for surgery. Patient going to order breakfast. Cbi to slow/mod rate. Red tinged output, no clots noted. Patient reports pain from duval & chonic leg & back pain. Flexril & Neurotin & Lesin for pain. Will monitor
--- NOTE | 2018-05-30 12:14 | NUR ---
Patient pain much improved after hand irrigation completed. A few clots obtained. Patient going to order lunch. Will monitor.
[2018-05-30 12:59] VITALS: BP 92/57; PULSE 64; TEMP 98.2
--- NOTE | 2018-05-30 13:32 | NUR ---
Patient continues to do well eating lunch. CBI continues to infuse
[2018-05-30 16:13] VITALS: BP 107/59; PULSE 65; TEMP 98.6
--- NOTE | 2018-05-30 16:30 | NUR ---
Patient resting. Cbi continues to infuse & he tolerates well.
[2018-05-30 19:44] VITALS: BP 121/76; PULSE 83; TEMP 98.1
[2018-05-30 23:38] VITALS: BP 114/66; PULSE 80; TEMP 98.9
--- NOTE | 2018-05-31 03:47 | NUR ---
Patient asking if his catheter is working, he feels like he needs to "pee". Irrigated with 30cc NS and able to clear numerous small clots with curtis syringe. Now draining watermelon colored urine, patient reports feeling relief and no longer feels like urinating. CBI continues.
[2018-05-31 03:58] VITALS: BP 117/63; PULSE 82; TEMP 98.6
--- NOTE | 2018-05-31 06:59 | NUR ---
REPORT FROM TONI ACEVEDO.
[2018-05-31 08:24] VITALS: BP 108/725; PULSE 81; TEMP 98.7
--- NOTE | 2018-05-31 11:14 | NUR ---
DONAVAN and SW student met with the patient to discuss discharge plan. The patient lives alone in [place]. He reports independence with ADLs and has a cane, crutches, and a walker. The patient's PCP is Dr. Lorie Morales and he receives his medications at the [facility]. He reports no difficulties obtaining his meds. The patient does not have advanced directives and he was not interested in completing them at this time. The patient plans to return home upon discharge. No additional needs at this time.
--- NOTE | 2018-05-31 11:29 | NUR ---
PT RESTING IN BED. REFUSING BREAKFAST. CORBIN TO DD WITH CBI INFUSING AT A MODERATE RATE. REDDISH URINE THIS AM. PO PAIN MEDS GIVEN FOR INCREASING GENERALZIED PAIN RATING AT 8/10.
[2018-05-31 11:44] VITALS: BP 97/58; PULSE 58; TEMP 98
--- NOTE | 2018-05-31 11:51 | NUR ---
First visit from the manager planning. No needs right now.
[2018-05-31 15:41] VITALS: BP 99/57; PULSE 58; TEMP 97.6
--- NOTE | 2018-05-31 15:52 | NUR ---
HEEL PROTECTORS PLACED PER PT REQUEST AND HEELS FLOATED.
--- NOTE | 2018-05-31 18:24 | NUR ---
IRRAGATED PT'S CATHETER AND SEVERAL SMALL CLOTS EVACUATED TRROUGH IRRAGATION. PT VERBALIZED RELIEF.
--- NOTE | 2018-05-31 19:04 | NUR ---
REPORT TO CYRUS ACEVEDO.
--- NOTE | 2018-05-31 20:30 | NUR ---
Pt. laying in bed at this time. Pt. is A&OX3, assessment complete. INT to lt. hand patent. Three-way duval noted with CBI running at this time. Urine is reddish with some clots noted in the tubing. Urine is running well at this time. Pt. denies pain or other needs. Call light within reach.
--- NOTE | 2018-05-31 20:41 | NUR ---
Pt. reports bladder pressure. Killian appeared to be clotted off again. Killian manually irrigated. Several clots removed from catheter. Urine flowing now. Urine is a red/brown color at this time with clots noted. Pt. reports bladder pressure is better. Will monitor.
[2018-05-31 21:43] VITALS: BP 113/55; PULSE 66; TEMP 98.5
--- NOTE | 2018-05-31 23:30 | NUR ---
Pt. continues to have bladder spasms. Dr. Bear notified. New orders recieved.
[2018-06-01 00:31] VITALS: BP 117/61; PULSE 70; TEMP 98.5
--- NOTE | 2018-06-01 01:15 | NUR ---
Pt. report continued pain to bladder. Urine appeared to be flowing. Manually irrigated again. A few clots remove, then unable to get any return from duval with manual irrigation. Duval catheter removed and replaced with a 20Fr Three-way catheter. Instantly got a urine return. Many clots noted, and urine bloody. CBI resumed, urine clearing up. Will continue to monitor.
[2018-06-01 04:07] VITALS: BP 93/54; PULSE 66; TEMP 98.2
--- NOTE | 2018-06-01 06:33 | NUR ---
Pt. has slept well since changing out his duval catheter. Pt. remains A&OX3. Pt. denies pain. Duval catheter has ran well, urine is pink in color at this time, less clots noted. Pt. denies further needs, call light within reach.
--- NOTE | 2018-06-01 08:46 | NUR ---
Patient stated he is tired this morning. Cluster care performed. Assessment complete, medications given, ice water filled. CBI running at relatively slow pace. Urine light pink. Denies pain. Denies further needs except sleep.
[2018-06-01 09:17] VITALS: BP 92/52; PULSE 63; TEMP 98.2
[2018-06-01 11:29] VITALS: BP 95/55; PULSE 65; TEMP 98.1
[2018-06-01 16:45] VITALS: BP 92/49; PULSE 62; TEMP 98.2
[2018-06-01 20:21] VITALS: BP 100/50; PULSE 64; TEMP 98.6
--- NOTE | 2018-06-01 20:30 | NUR ---
Patient report received from KRISTINA Simms and Amy RN at bedside during shift report. CBI infusing at slow rate, dark red urine with small clots noted. Patient reports having some bladder spasms today. Plan is to DC duval in AM and do 6 bottle routine. No other needs reported.
[2018-06-02 00:30] VITALS: BP 100/60; PULSE 64; TEMP 98.5
[2018-06-02 03:10] VITALS: BP 133/57; PULSE 73; TEMP 98
--- NOTE | 2018-06-02 07:22 | NUR ---
Patient report given to KRISTINA Dove at bedside. Patient resting comfortably, denies any bladder spasms at this time. CBI clamped at this time. Held off on discontinuing catheter due to clots and dark red urine.
[2018-06-02 08:10] VITALS: BP 115/49; PULSE 59; TEMP 98.9
--- NOTE | 2018-06-02 09:00 | NUR ---
Killian catheter discontinues at this time. 10ml of saline removed from 30ml catheter balloon. A few large clots came out with the catheter. Ana-care provided. Removed statlock from right thigh at this time. Patient tolerated well. Explained 6 cup routine to patient, he verbalized understanding. No other changes at this time. Patient has a urinal at bedside. Encouraged him to continue drinking water to help his urine clear up. Call light within reach.
[2018-06-02 11:06] VITALS: BP 103/59; PULSE 59; TEMP 97.6
[2018-06-02 16:58] VITALS: BP 103/60; PULSE 55; TEMP 98.5
--- NOTE | 2018-06-02 17:30 | NUR ---
Patients urine is finally cleared up. 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 Called Dr Bear for discharge order. Explained to patient that once we get discharge orders, he can go home. No other changes at this time. Call light within reach.
--- NOTE | 2018-06-02 19:40 | NUR ---
PATIENT READY FOR DISCHARGE. IV SITE DC'D FROM LEFT WRIST, ANGIOCATH INTACT.
--- NOTE | 2018-06-02 19:45 | NUR ---
REVIEWED DISCHARGE INSTRUCTIONS WITH PATIENT. EDUCATED ON URINARY RETENTION AND WHEN TO SEEK PHYSICIAN ADVICE. QUESTIONS ANSWERED.
--- NOTE | 2018-06-02 19:55 | NUR ---
TAKEN VIA W/C TO PRIVATE CAR FOR DISCHARGE. PERSONAL BELONGINGS AND DISCHARGE INSTRUCTIONS SENT WITH PATIENT.
== END 2018-06-02 19:55 | disposition home or self-care (01) ==
LOC: COL.ER 01:57 → SURG 04:26
PROVIDERS: Emergency Medicine; ADMIT Urology
DX: R31.0 Gross hematuria (principal); Z95.5 Presence of coronary angioplasty implant and graft; Z90.49 Acquired absence of other specified parts of digestive tract; Z88.1 Allergy status to other antibiotic agents; Z88.2 Allergy status to sulfonamides; Z88.0 Allergy status to penicillin; Z79.82 Long term (current) use of aspirin; Z79.02 Long term (current) use of antithrombotics/antiplatelets
CPT/HCPCS: G0378; J3010

== ENCOUNTER → 2018-06-22 | Outpatient (CLI) | payer BC | LOC: MHCPAIN 14:23 | DX: G89.29 Other chronic pain (principal); M47.817 Spondylosis without myelopathy or radiculopathy, lumbosacral region; M54.16 Radiculopathy, lumbar region; M53.3 Sacrococcygeal disorders, not elsewhere classified | CPT/HCPCS: G0463 ==

== ENCOUNTER → 2018-06-24 | Outpatient (CLI) | payer BC | LOC: MHCPAIN 12:24 | DX: M47.817 Spondylosis without myelopathy or radiculopathy, lumbosacral region (principal); M54.16 Radiculopathy, lumbar region | CPT/HCPCS: J1100; Q9967 ==

== ENCOUNTER → 2018-07-06 | Outpatient (CLI) | payer BC | LOC: MHCPAIN 09:59 | DX: G89.29 Other chronic pain (principal); M47.817 Spondylosis without myelopathy or radiculopathy, lumbosacral region; M54.16 Radiculopathy, lumbar region; M53.3 Sacrococcygeal disorders, not elsewhere classified | CPT/HCPCS: G0463 ==

== ENCOUNTER 2018-10-04 09:15 | Outpatient (RCR) | payer BC | END 2018-10-06 | disposition still patient (30) | LOC: WSPT | DX: M47.27 Other spondylosis with radiculopathy, lumbosacral region (principal); M53.3 Sacrococcygeal disorders, not elsewhere classified ==

== ENCOUNTER 2018-10-07 12:42 | Outpatient (RCR) | payer BC | END 2018-11-12 17:18 | disposition home or self-care (01) | LOC: WSPT 12:42 | DX: M47.27 Other spondylosis with radiculopathy, lumbosacral region (principal); M53.3 Sacrococcygeal disorders, not elsewhere classified ==

== ENCOUNTER → 2018-10-26 | Outpatient (CLI) | payer BC | LOC: MHCPAIN 10:03 | DX: G89.29 Other chronic pain (principal); M47.817 Spondylosis without myelopathy or radiculopathy, lumbosacral region; M54.16 Radiculopathy, lumbar region; M53.3 Sacrococcygeal disorders, not elsewhere classified | CPT/HCPCS: G0463 ==

== ENCOUNTER → 2018-11-26 | Outpatient (CLI) | payer BC | LOC: COL.RAD 09:55 | DX: N17.8 Other acute kidney failure (principal) ==

== ENCOUNTER → 2018-12-21 | Outpatient (CLI) | payer BC | LOC: DIA.ED 09:46 | DX: E11.9 Type 2 diabetes mellitus without complications (principal); E78.5 Hyperlipidemia, unspecified; I10 Essential (primary) hypertension; E66.9 Obesity, unspecified | CPT/HCPCS: G0108 ==

== ENCOUNTER → 2020-04-17 | Outpatient (CLI) | payer BC, MEDICARE | LOC: MHCPAIN 10:27 | DX: M47.817 Spondylosis without myelopathy or radiculopathy, lumbosacral region (principal); M54.5 Low back pain; M53.3 Sacrococcygeal disorders, not elsewhere classified; G89.29 Other chronic pain | CPT/HCPCS: G0463 ==

== ENCOUNTER 2020-06-28 11:00 | Outpatient (RCR) | payer MEDICARE | END 2020-07-25 | disposition still patient (30) | LOC: WSPT | DX: M47.896 Other spondylosis, lumbar region (principal) ==

== ENCOUNTER → 2021-12-24 | Outpatient (CLI) | payer MEDICARE | LOC: DIA.ED 13:05 | DX: E11.40 Type 2 diabetes mellitus with diabetic neuropathy, unspecified (principal); E11.59 Type 2 diabetes mellitus with other circulatory complications; E11.65 Type 2 diabetes mellitus with hyperglycemia; I10 Essential (primary) hypertension; E78.5 Hyperlipidemia, unspecified | CPT/HCPCS: G0108 ==

== ENCOUNTER → 2022-04-22 | Outpatient (CLI) | payer MEDICARE | LOC: DIA.ED 04-15 16:21 | DX: E11.22 Type 2 diabetes mellitus with diabetic chronic kidney disease (principal); E78.5 Hyperlipidemia, unspecified; I10 Essential (primary) hypertension | CPT/HCPCS: G0108 ==